=== PATIENT | female | born 1955 | race Caucasian/White ===

== ENCOUNTER 2016-08-15 13:59 | Emergency (ER) | payer BC ==
[~2016-08-15] VITALS: Ht 162.6 cm; Wt 130.6 kg
[2016-08-15 14:10] VITALS: BP 152/68
[2016-08-15 14:32] LABS: HEMOGLOBIN ISTAT 13.3 gm/dL; POTASSIUM ISTAT 3.9 mmol/L (3.5-5.0)
[2016-08-15 14:36] LABS: BASO # 0.1 x10^3/uL (0.0-0.2); BASO % 1 % (0-3); EOS # 0.2 x10^3/uL (0.0-0.7); EOS % 1 % (0-3); HEMATOCRIT 39.5 % (36.0-47.0); HEMOGLOBIN 12.9 g/dL (12.0-15.5); LYMPH # 2.1 x10^3/uL (1.0-4.8); LYMPH % 14 % (24-48); MEAN CORPUSCULAR HEMOGLOBIN 29 pg (25-35); MEAN CORPUSCULAR HGB CONC 33 g/dL (31-37); MEAN CORPUSCULAR VOLUME 89 fL (79-100); MONO # 0.9 x10^3/uL (0.0-1.1); MONO % 6 % (0-9); NEUT # 11.6 x10^3uL (1.8-7.7); NEUT % 78 % (31-73); PLATELET COUNT 208 x10^3/uL (140-400); RED BLOOD COUNT 4.45 x10^6/uL (3.50-5.40); RED CELL DISTRIBUTION WIDTH 15.1 % (11.5-14.5)
[2016-08-15 14:44] LABS: ALK PHOS 126 U/L (46-116); ALT (SGPT) 38 U/L (14-59); AST (SGOT) 28 U/L (15-37); LIPASE 81 U/L (73-393)
[2016-08-15] MEDS ORDERED: IOHEXOL 300 MG/ML 75 ML VIAL. IV ONE (15:00)
--- NOTE | 2016-08-15 15:14 | RAD ---
Indication lower abdominal pain. Axial images through the abdomen and pelvis were obtained. Images were reformatted in the coronal and sagittal planes. Approximately 75 cc of Omnipaque 300 was administered intravenously. The study is somewhat compromised secondary to patient motion. No prior imaging is available. The lung bases are clear. There is fatty infiltration of the liver. There is a low-density mass in the left lobe of the liver measuring approximately 6 to 7 mm. This likely reflects an incidental cyst. A definite significant finding in the liver is not seen. There is cholelithiasis. The spleen appears unremarkable. The pancreas appears normal. There are no adrenal masses and the kidneys appear unremarkable. There are several mildly enlarged retroperitoneal lymph nodes. These are probably incidental. There are several diverticula seen involving the large bowel. These are most numerous in the sigmoid colon. There is thickening involving the sigmoid colon extending over approximately a 10 cm segment with associated stranding in the surrounding mesentery. Findings are most compatible with diverticulitis. An underlying soft tissue mass is not excluded and if colonoscopy has not been recently performed this should be considered. A discrete abscess, amenable to drainage, is not seen. There are small mesenteric lymph nodes seen in the pelvis. These too are likely reactive. The uterus is enlarged and somewhat inhomogeneous with some associated calcifications. The findings likely reflect an enlarged, fibroid, uterus. IMPRESSION: Inflammatory changes involving the sigmoid colon most compatible with diverticulitis. A focal abscess, amenable to drainage, is not seen. If colonoscopy has not been recently performed this should be considered. Borderline abdominal adenopathy probably reactive. Enlarged likely fibroid uterus Fatty infiltration of the liver. Cholelithiasis
[2016-08-15] MEDS ORDERED: METR500T PO (15:28)
[2016-08-15] MEDS ORDERED: CIPR500T94 PO (15:28)
[2016-08-15] MEDS ORDERED: HYDR-971 PO (15:28)
[2016-08-15 15:39] LABS: BILIRUBIN,URINE SMALL (NEG); CLARITY,URINE CLEAR; COLOR,URINE AMBER; GLUCOSE,URINE NEG (NEG)
[2016-08-15 15:40] LABS: NITRITE,URINE NEG (NEG); UROBILINOGEN,URINE 8 mg/dL (0.2 mg/dL)
[2016-08-15] MEDS ORDERED: FENTANYL PF 100 MCG/2 ML VIAL. IV ONE (15:45)
--- NOTE | 2016-08-15 16:41 | ED.ADGEN ---
Past History Past Medical History: No Pertinent History Past Surgical History: No Surgical History Alcohol Use: None Drug Use: None Adult General HPI HPI Patient is a 61-year-old female presents emergency department complaining of bilateral lower abdominal pain. Patient states she has pain for several days. Initially, she thought she was constipated but she has had several normal bowel movements without relief of her pain. She was seen by her physician yesterday who was going to schedule her an outpatient CT scan but her pain worsened prior to being able to get that scan. She denies any fevers, chills, nausea, vomiting. Denies any diarrhea or dysuria. Review of Systems Review of Systems Constitutional: Denies fever or chills [] Eyes: Denies change in visual acuity, redness, or eye pain [] HENT: Denies nasal congestion or sore throat [] Respiratory: Denies cough or shortness of breath [] Cardiovascular: No additional information not addressed in HPI [] GI: Denies abdominal pain, nausea, vomiting, bloody stools or diarrhea [] : Denies dysuria or hematuria [] Musculoskeletal: Denies back pain or joint pain [] Integument: Denies rash or skin lesions [] Neurologic: Denies headache, focal weakness or sensory changes [] Endocrine: Denies polyuria or polydipsia [] Current Medications Current Medications Current Medications Medications (Trade) Dose Ordered Sig/Gay Start Time Stop Time Status Last Admin Dose Admin Fentanyl Citrate (Fentanyl 2ml Vial) 75 mcg 1X ONCE 08/15/16 15:45 08/15/16 15:46 DC Iohexol (Omnipaque 300 Mg/ml) 75 ml 1X ONCE 08/15/16 15:00 08/15/16 15:01 DC 08/15/16 14:47 75 ML Allergies Allergies Allergies Coded Allergies Type Severity Reaction Last Updated Verified Sulfa (Sulfonamide Antibiotics) Allergy Intermediate 08/15/16 Yes Physical Exam Physical Exam Constitutional: Well developed, well nourished, no acute distress, non-toxic appearance. [] HENT: Normocephalic, atraumatic, bilateral external ears normal, oropharynx moist, no oral exudates, nose normal. [] Eyes: PERRLA, EOMI, conjunctiva normal, no discharge. [] Neck: Normal range of motion, no tenderness, supple, no stridor. [] Cardiovascular:Heart rate regular rhythm, no murmur [] Lungs & Thorax: Bilateral breath sounds clear to auscultation [] Abdomen: Bowel sounds normal, soft, left lower quadrant is tender to palpation without peritoneal signs, no masses, no pulsatile masses. [] Skin: Warm, dry, no erythema, no rash. [] Back: No tenderness, no CVA tenderness. [] Extremities: No tenderness, no cyanosis, no clubbing, ROM intact, no edema. [] Neurologic: Alert and oriented X 3, normal motor function, normal sensory function, no focal deficits noted. [] Psychologic: Affect normal, judgement normal, mood normal. [] Current Patient Data Vital Signs Vital Signs Date Time Temp Pulse Resp B/P Pulse Ox O2 Delivery O2 Flow Rate FiO2 08/15/16 14:10 98.5 16 Room Air Lab Results Laboratory Tests Test 08/15/16 14:21 08/15/16 14:29 08/15/16 15:15 White Blood Count 15.0x10^3/uL (4.0-11.0) H Red Blood Count 4.45x10^6/uL (3.50-5.40) Hemoglobin 12.9g/dL (12.0-15.5) Hematocrit 39.5% (36.0-47.0) Mean Corpuscular Volume 89fL (79-100) Mean Corpuscular Hemoglobin 29pg (25-35) Mean Corpuscular Hemoglobin Concent 33g/dL (31-37) Red Cell Distribution Width 15.1% (11.5-14.5) H Platelet Count 208x10^3/uL (140-400) Neutrophils (%) (Auto) 78% (31-73) H Lymphocytes (%) (Auto) 14% (24-48) L Monocytes (%) (Auto) 6% (0-9) Eosinophils (%) (Auto) 1% (0-3) Basophils (%) (Auto) 1% (0-3) Neutrophils # (Auto) 11.6x10^3uL (1.8-7.7) H Lymphocytes # (Auto) 2.1x10^3/uL (1.0-4.8) Monocytes # (Auto) 0.9x10^3/uL (0.0-1.1) Eosinophils # (Auto) 0.2x10^3/uL (0.0-0.7) Basophils # (Auto) 0.1x10^3/uL (0.0-0.2) Aspartate Amino Transferase (AST) 28U/L (15-37) Alanine Aminotransferase (ALT) 38U/L (14-59) Alkaline Phosphatase 126U/L (46-116) H Lipase 81U/L (73-393) POC Hemoglobin 13.3gm/dL POC Hematocrit 39% POC Sodium 142mmol/L (135-145) POC Potassium 3.9mmol/L (3.5-5.0) POC Chloride 99mmol/L (98-110) POC Total CO2 30mmol/L (23-32) Anion Gap 18mmol/L (6-14) H POC Blood Urea Nitrogen 13mg/dL (8-26) POC Creatinine 1.0mg/dL (0.5-1.4) Glucose Level 151mg/dL (60-99) H POC Ionized Calcium (Carole) 1.20mmol/L (1.13-1.32) Urine Collection Type Void Urine Color Liz Urine Clarity Clear Urine pH 5.5 Urine Specific [place] 1.020 Urine Protein >100 mg/dl (NEG-TRACE) Urine Glucose (UA) Negmg/dL (NEG) Urine Ketones (Stick) Tracemg/dL (NEG) Urine Blood Trace (NEG) Urine Nitrite Neg (NEG) Urine Bilirubin Small (NEG) Urine Urobilinogen Dipstick 8mg/dL (0.2 mg/dL) Urine Leukocyte Esterase Neg (NEG) EKG EKG [] Radiology/Procedures Radiology/Procedures Indication lower abdominal pain. Axial images through the abdomen and pelvis were obtained. Images were reformatted in the coronal and sagittal planes. Approximately 75 cc of Omnipaque 300 was administered intravenously. The study is somewhat compromised secondary to patient motion. No prior imaging is available. The lung bases are clear. There is fatty infiltration of the liver. There is a low-density mass in the left lobe of the liver measuring approximately 6 to 7 mm. This likely reflects an incidental cyst. A definite significant finding in the liver is not seen. There is cholelithiasis. The spleen appears unremarkable. The pancreas appears normal. There are no adrenal masses and the kidneys appear unremarkable. There are several mildly enlarged retroperitoneal lymph nodes. These are probably incidental. There are several diverticula seen involving the large bowel. These are most numerous in the sigmoid colon. There is thickening involving the sigmoid colon extending over approximately a 10 cm segment with associated stranding in the surrounding mesentery. Findings are most compatible with diverticulitis. An underlying soft tissue mass is not excluded and if colonoscopy has not been recently performed this should be considered. A discrete abscess, amenable to drainage, is not seen. There are small mesenteric lymph nodes seen in the pelvis. These too are likely reactive. The uterus is enlarged and somewhat inhomogeneous with some associated calcifications. The findings likely reflect an enlarged, fibroid, uterus. IMPRESSION: Inflammatory changes involving the sigmoid colon most compatible with diverticulitis. A focal abscess, amenable to drainage, is not seen. If colonoscopy has not been recently performed this should be considered. Borderline abdominal adenopathy probably reactive. Enlarged likely fibroid uterus Fatty infiltration of the liver. Cholelithiasis DICTATED AND SIGNED BY: FLORINDA MENON MD DATE: 08/15/16 6042 CC: MIGUEL ÁNGEL ZEPEDA MD; PCP,UNKNOWN ~[] Course & Med Decision Making Course & Med Decision Making Pertinent Labs and Imaging studies reviewed. (See chart for details) The patient does have diverticulitis. This is her first bout of it. At this point we have decided to pursue outpatient management with [place], Cipro, and Flagyl. She is to follow-up with her doctor in 2-3 days and return emergency department sooner she develops any new or worsening symptoms. [] Final Impression Final Impression Diverticulitis [] Problems: Dragon Disclaimer Dragon Disclaimer This electronic medical record was generated, in whole or in part, using a voice recognition dictation system. MIGUEL ÁNGEL ZEPEDA MD Aug 15, 2016 16:41
== END 2016-08-15 15:46 | disposition home or self-care (01) ==
LOC: ER 13:59 → EDSEX 13:59 → ER 15:46
DX: K57.92 Diverticulitis of intestine, part unspecified, without perforation or abscess without bleeding (principal); Z88.2 Allergy status to sulfonamides
CPT/HCPCS: 36415; 74177; 80047; 81003; 83690; 84075; 84450; 84460; 85027; 99285; Q9967